=== PATIENT | male | born 1945 | race Caucasian/White ===

== ENCOUNTER 2016-11-24 13:16 | Emergency (ER) | payer MEDICARE, OTHER | END 2016-11-24 14:36 | disposition home or self-care (01) | LOC: ER 13:16 | DX: I25.10 Atherosclerotic heart disease of native coronary artery without angina pectoris (principal); R09.1 Pleurisy; Z79.82 Long term (current) use of aspirin; Z79.899 Other long term (current) drug therapy; F17.210 Nicotine dependence, cigarettes, uncomplicated | CPT/HCPCS: 36415; 71010; 80053; 82550; 83735; 84484; 85025; 85610; 85730; 93005 ==